=== PATIENT | female | born 1985 | race Caucasian/White ===

== ENCOUNTER 2016-09-24 16:40 | Emergency (ER) | payer MEDICAID ==
--- NOTE | 2016-09-24 17:10 | ER Document Report ---
ED Medical Screen (RME) - General Stated Complaint: LEG PAIN, NUMBNESS Notes: Patient has a long-standing history of lower back pain. However she presents today because she has numbness and tingling to her lower extremities which is unusual for her chronic symptoms. I greeted and performed a rapid initial assessment of this patient. Comprehensive ED assessment and evaluation of the patient, analysis of test results and completion of the medical decision making process will be conducted by additional ED providers. TRAVEL OUTSIDE OF THE [place] IN LAST 30 DAYS: No - Related Data Allergies/Adverse Reactions: ketorolac tromethamine [From Toradol] Allergy (Verified 04/11/16 12:20) Past Medical History - Past Medical History Cardiac Medical History: Reports: Hx Hypercholesterolemia, Hx Hypertension Pulmonary Medical History: Reports: Hx Asthma Neurological Medical History: Reports: Hx Migraine Endocrine Medical History: Reports: Hx Diabetes Mellitus Type 2 Renal/ Medical History: Reports: Hx Ovarian Cysts. Denies: Hx Pelvic Inflammatory Disease Musculoskeltal Medical History: Reports Hx Arthritis - knees, Reports Hx Musculoskeletal Trauma Psychiatric Medical History: Reports: Hx Attention Deficit Hyperactivity Disorder, Hx Bipolar Disorder, Hx Depression, Hx Personality Disorder, Hx Post Traumatic Stress Disorder Past Surgical History: Reports: Hx Gynecologic Surgery - ovarian cysts, Hx Hysterectomy, Hx Orthopedic Surgery - knee/upper left arm - Immunizations Immunizations up to date: No Hx Diphtheria, Pertussis, Tetanus Vaccination: No Physical Exam - Vital signs Vitals: Temp Pulse Resp BP Pulse Ox 97.6 F 142 H 20 111/86 H 100 09/24/16 16:57 09/24/16 16:57 09/24/16 16:57 09/24/16 16:57 09/24/16 16:57 Course - Vital Signs Vital signs: Temp Pulse Resp BP Pulse Ox 97.6 F 142 H 20 111/86 H 100 09/24/16 16:57 09/24/16 16:57 09/24/16 16:57 09/24/16 16:57 09/24/16 16:57
[2016-09-24] MEDS ORDERED: DEXAMETHASONE SOD PHOS INJ 10 MG/1 ML VIAL IM ONE (20:12)
[2016-09-24] MEDS ORDERED: ACETAMINOPHEN WITH CODEINE #3 TABLET PO ONE (20:12)
--- NOTE | 2016-09-24 20:14 | ER Document Report ---
ED General - General Chief Complaint: Leg Pain Stated Complaint: LEG PAIN, NUMBNESS Mode of Arrival: Ambulatory Information source: Patient Notes: 31-year-old female presents with complaints of chronic low back pain which is now causing numbness. Patient denies any neurological dysfunction otherwise denies any loss of bowel or bladder function or any other cauda equina concerns TRAVEL OUTSIDE OF THE [place] IN LAST 30 DAYS: No - HPI Onset: Yesterday Onset/Duration: Persistent Quality of pain: Achy Severity: Mild Pain Level: 1 Associated symptoms: Other Exacerbated by: Movement Relieved by: Denies Similar symptoms previously: Yes Recently seen / treated by doctor: Yes - Related Data Allergies/Adverse Reactions: ketorolac tromethamine [From Toradol] Allergy (Verified 04/11/16 12:20) Past Medical History - Social History Smoking Status: Current Every Day Smoker Cigarette use (# per day): No Chew tobacco use (# tins/day): No Smoking Education Provided: No Family History: Arthritis, CAD, DM, Hyperlipidemia, Hypertension, Malignancy. denies: CVA Patient has suicidal ideation: No Patient has homicidal ideation: No - Past Medical History Cardiac Medical History: Reports: Hx Hypercholesterolemia, Hx Hypertension Pulmonary Medical History: Reports: Hx Asthma Neurological Medical History: Reports: Hx Migraine Endocrine Medical History: Reports: Hx Diabetes Mellitus Type 2 Renal/ Medical History: Reports: Hx Ovarian Cysts. Denies: Hx Peritoneal Dialysis, Hx Pelvic Inflammatory Disease Musculoskeltal Medical History: Reports Hx Arthritis - knees, Reports Hx Musculoskeletal Trauma Psychiatric Medical History: Reports: Hx Attention Deficit Hyperactivity Disorder, Hx Bipolar Disorder, Hx Depression, Hx Personality Disorder, Hx Post Traumatic Stress Disorder Past Surgical History: Reports: Hx Gynecologic Surgery - ovarian cysts, Hx Hysterectomy, Hx Orthopedic Surgery - knee/upper left arm - Immunizations Immunizations up to date: No Hx Diphtheria, Pertussis, Tetanus Vaccination: No Review of Systems - Review of Systems Notes: REVIEW OF SYSTEMS: CONSTITUTIONAL : Denies fever, chills, or sweats. Denies recent illness. EENT: Denies eye, ear, throat, or mouth pain or symptoms. Denies nasal or sinus congestion or discharge. Denies throat, tongue, or mouth swelling or difficulty swallowing. CARDIOVASCULAR: Denies chest pain. Denies palpitations or racing or irregular heart beat. Denies ankle edema. RESPIRATORY: Denies cough, cold, or chest congestion. Denies shortness of breath, difficulty breathing, or wheezing. GASTROINTESTINAL: Denies abdominal pain or distention. Denies nausea, vomiting , or diarrhea. Denies blood in vomitus, stools, or per rectum. Denies black, tarry stools. Denies constipation. GENITOURINARY: Denies difficulty urinating, painful urination, burning, frequency, blood in urine, or discharge. FEMALE GENITOURINARY: Denies vaginal bleeding, heavy or abnormal periods, irregular periods. Denies vaginal discharge or odor. MUSCULOSKELETAL: Admits to back pain rating down the right leg. SKIN: Denies rash, lesions or sores. HEMATOLOGIC : Denies easy bruising or bleeding. LYMPHATIC: Denies swollen, enlarged glands. NEUROLOGICAL: Admits to subjective paresthesia of the right leg PSYCHIATRIC: Denies anxiety or stress. Denies depression, suicidal ideation, or homicidal ideation. ALL OTHER SYSTEMS REVIEWED AND NEGATIVE. Dictation was performed using [employer] voice recognition software PHYSICAL EXAMINATION: GENERAL: Well-appearing, well-nourished and in no acute distress. HEAD: Atraumatic, normocephalic. EYES: Pupils equal round and reactive to light, extraocular movements intact, conjunctiva are normal. ENT: Nares patent, oropharynx clear without exudates. Moist mucous membranes. NECK: Normal range of motion, supple without lymphadenopathy LUNGS: Breath sounds clear to auscultation bilaterally and equal. No wheezes rales or rhonchi. HEART: Regular rate and rhythm without murmurs ABDOMEN: Soft, nontender, nondistended abdomen. No guarding, no rebound. No masses appreciated. Female : deferred Musculoskeletal: Normal range of motion, no pitting or edema. No cyanosis. NEUROLOGICAL: Cranial nerves grossly intact. Normal speech, normal gait. Normal sensory, motor exams patient is not appear to have any neurological dysfunction PSYCH: Normal mood, normal affect. SKIN: Warm, Dry, normal turgor, no rashes or lesions noted. Physical Exam - Vital signs Vitals: Temp Pulse Resp BP Pulse Ox 97.6 F 142 H 20 111/86 H 100 09/24/16 16:57 09/24/16 16:57 09/24/16 16:57 09/24/16 16:57 09/24/16 16:57 Course - Re-evaluation Re-evalutation: 01/29/17 20:13 MRI noted no significant abnormality, it appears patient is here with one possibly 2 other females with back pain Patient noted to have presented with a drug overdose in the past as well Patient will be given steroids for her back pain After performing a Medical Screening Examination, I estimate there is LOW risk for EXPANDING OR RUPTURED ABDOMINAL AORTIC ANEURYSM, CAUDA EQUINA SYNDROME, EPIDURAL MASS LESION, or HERNIATED DISK CAUSING SEVERE SPINAL STENOSIS, thus I consider the discharge disposition reasonable. The patient and I have discussed the diagnosis and risks, and we agree with discharging home and close follow-up. We also discussed returning to the Emergency Department immediately if new or worsening symptoms occur with the understanding that symptoms and presentations can change. We have discussed the symptoms which are most concerning (e.g., saddle anesthesia, urinary or bowel incontinence or retention , changing or worsening pain) that necessitate immediate return. 09/24/16 20:15 On discharge patient is noted to be tachycardic 128 which is improved from initial presentation, patient admits that she has a history of tachycardia and that she is always in the 130s 09/24/16 20:15 09/24/16 22:41 09/24/16 22:42 pt noted to want more narcotics 09/24/16 22:43 - Vital Signs Vital signs: Temp Pulse Resp BP Pulse Ox 97.6 F 128 H 18 105/89 H 98 09/24/16 16:57 09/24/16 20:33 09/24/16 20:33 09/24/16 20:33 09/24/16 20:33 - Diagnostic Test Radiology reviewed: Image reviewed, Reports reviewed - report given to patient Discharge - Discharge Clinical Impression: Acute exacerbation of chronic low back pain, Cigarette smoker two packs a day or less Condition: Stable Disposition: HOME, SELF-CARE Instructions: Chronic Back Pain ([facility]) Prescriptions: Acetaminophen with Codeine [Tylenol #3 Tablet] 1 each PO Q4HP PRN #10 tablet PRN Reason: Prednisone [Deltasone 20 mg Tablet] 3 tab PO DAILY 5 Days Referrals: KATIE CASEY MD [Primary Care Provider] - Follow up tomorrow
[2016-09-24 20:34] VITALS: BP 105/89
== END 2016-09-24 20:32 | disposition home or self-care (01) ==
LOC: ER 16:40
DX: G89.29 Other chronic pain (principal); M54.5 Low back pain; R20.0 Anesthesia of skin; R00.0 Tachycardia, unspecified; F17.210 Nicotine dependence, cigarettes, uncomplicated; E78.00 Pure hypercholesterolemia, unspecified; I10 Essential (primary) hypertension; J45.909 Unspecified asthma, uncomplicated; E11.9 Type 2 diabetes mellitus without complications; Z90.710 Acquired absence of both cervix and uterus
CPT/HCPCS: 99283; 96372; 72148; J1100